=== PATIENT | female | born 1945 | race Caucasian/White ===

== ENCOUNTER → 2017-05-21 | Outpatient (CLI) | payer MEDICARE ==
--- NOTE | 2017-05-21 11:54 | KCIC ---
MR of the left knee Indication: Left knee pain. Medial pain for about 3 months. Slight swelling. Pain with walking. Technique: The standard multiplanar sequences are obtained. Findings: Medial meniscus: Degenerative tear. Lateral meniscus: Discoid morphology, with a diffuse degenerative tear. Anterior cruciate ligament: Intact Posterior cruciate ligament: Intact Medial collateral ligament: Intact. Iliotibial band: Intact. Lateral collateral ligament: Intact Posterolateral corner: No internal derangement identified. Extensor mechanism: Intact. Fluid: Moderate joint effusion. 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 Mild femoral trochlear chondromalacia. -medial compartment: Severe chondromalacia at the weightbearing aspect. -lateral compartment: [id number]-um-[id number] chondromalacia. Bones: No significant lesion or acute fracture. Soft tissue: Unremarkable Impression: 1. Medial meniscal tear. 2. Discoid lateral meniscus, with tear. 3. Primary osteoarthritis. Electronically signed by: Josiah Cuellar MD (05/21/2017 11:51 AM) [facility]
== END | disposition home or self-care (01) ==
LOC: KCIC MRI 10:36
PROVIDERS: ATTEND Orthopaedic Surgery
DX: S83.242A Other tear of medial meniscus, current injury, left knee, initial encounter (principal); M17.12 Unilateral primary osteoarthritis, left knee; M94.262 Chondromalacia, left knee; X58.XXXA Exposure to other specified factors, initial encounter; Y93.89 Activity, other specified; Y92.89 Other specified places as the place of occurrence of the external cause; Y99.8 Other external cause status
CPT/HCPCS: 73721